=== PATIENT | female | born 1965 | race Caucasian/White ===

== ENCOUNTER 2022-05-22 08:49 | Emergency (ER) | payer OTHER ==
[~2022-05-22] VITALS: Ht 162.6 cm; Wt 66.9 kg
[~2022-05-22 08:49] MED LIST: DICLOFENAC SODI75 MG PO; ESTRACE1 MG PO; HYDROMORPHONE HC4 MG PO; LEVOTHYROXINE50 MCG PO; LOSARTAN POTASS25 MG PO; PAMELOR10 MG PO; PRILOSEC10 MG PO; VOLTAREN100 GM TOP
[2022-05-22] MEDS ORDERED: KETOROLAC TROME10 MG PO (09:35)
[2022-05-22] MEDS ORDERED: TRAMADOL HCL50 MG PO (09:35)
[2022-05-22] MEDS ORDERED: MAXALT10 MG PO (09:36)
[2022-05-22] MEDS ORDERED: PREDNISONE20 MG PO (13:52)
--- NOTE | 2022-05-25 16:10 | EKG ---
[facility] [address] [facility] [place] [address] Signed Normal sinus rhythm Normal ECG When compared with ECG of 28-APR-2020 14:54, No significant change was found Confirmed by STACY FITCH MD ([id number]) on 05/25/2022 4:10:13 PM Electronically Signed By: STACY FITCH MD 05/25/22 1610 PATIENT NAME: EMMA VACA Electrocardiogram DATE OF : 61 PHYSICIAN: STACY FITCH MD REPORT #: [id number] REPORT IS CONFIDENTIAL AND NOT TO BE RELEASED WITHOUT AUTHORIZATION
== END 2022-05-22 14:49 | disposition home or self-care (01) ==
LOC: ED 08:49
DX: G44.209 Tension-type headache, unspecified, not intractable (principal); M54.12 Radiculopathy, cervical region; Z88.5 Allergy status to narcotic agent; Z88.8 Allergy status to other drugs, medicaments and biological substances; Z79.899 Other long term (current) drug therapy
CPT/HCPCS: 36415; 70450; 70496; 70498; 70551; 71045; 72141; 80053; 84484; 85025; 85610; 85730; 93005; 93010; 96374; 99284-25; J1100

== ENCOUNTER 2024-08-18 09:16 | Day surgery (SDC) | payer OTHER ==
[~2024-08-18] VITALS: Ht 162.6 cm; Wt 63.5 kg
[~2024-08-18 09:16] MED LIST changes: +ALDACTONE25 MG PO; +BUDESONIDE EC3 M1 PO; +CARAFATE1 GM PO; +CLARITIN10 MG PO; +COZAAR25 MG PO; +ESTRADIOL0.5 MG PO; +IBLOOD GLUCOSE TEST STRIP 1 EA TEST VI PRN; +KETOROLAC TROME10 MG PO; +LACTATED RINGER'S 1,000 ML IV SCH; +LIDOCAINE HCL 1% 5 ML SDV INJ ONE; +LOMOTIL TABLET1 EACH PO; +MAXALT10 MG PO; +MIDAZOLAM HCL 5 MG/5 ML VIAL IV PRN; +NEURONTIN300 MG PO; +NORTRIPTYLINE H10 MG PO; +PREDNISONE20 MG PO; +TRAMADOL HCL50 MG PO; +ZYRTEC10 MG PO; +fentaNYL citrate 100 MCG/2 ML VIAL IV PRN
[2024-08-18 09:41] VITALS: BP 140/78
[2024-08-18] MEDS ORDERED: fentaNYL citrate 100 MCG/2 ML VIAL ONE (09:52)
[2024-08-18] MEDS ORDERED: MIDAZOLAM HCL 5 MG/5 ML VIAL ONE (09:52)
--- NOTE | 2024-08-18 10:50 | NUR ---
08/18/24 1050 Natalia Hall 1045-PATIENT ARRIVED TO PACU ON 3L NC RR EVEN PATIENT AWAKE VERY DROWY DENIES PAIN OR NAUSEA. LAYING LEFT LATERAL ABDOMEN SOFT. ORIENTED TO PACU. LAYING LEFT LATERAL. IVF INFUSING. SR HR 60'S.
[2024-08-18 11:50] VITALS: BP 130/87
--- NOTE | 2024-08-19 13:13 | OR ---
[facility] [address] [place], [place] [address] Signed DATE OF OPERATION: 08/18/2024 SURGEON: Aneudy Lanier MD PREOPERATIVE DIAGNOSES: 1. Intractable nonbloody diarrhea, extensive evaluation, normal. 2. Elevated fecal calprotectin. POSTOPERATIVE DIAGNOSES: 1. Two small polyps of rectum (excised). 2. Mild edema of colon, consideration for microscopic colitis. PROCEDURES: 1. Total colonoscopy to cecum with biopsies. 2. Cold morcellation polypectomy x2. ANESTHESIA: Intravenous sedation fentanyl 100 mcg and Versed 5 mg. INDICATION: This 59-year-old white woman is a patient Dr. Emerald Anne. She has had intractable persistent nonbloody diarrhea for quite some time. Extensive evaluation undertaken by Dr. Anne and others has shown no evidence of celiac disease or enteric pathogens. A fecal calprotectin was noted to be markedly elevated and she did have white cells in the stool. On that basis, colonoscopy is indicated to better characterize the problem. She understands the risk of bleeding, infection, and perforation related to colonoscopy and wished to proceed. Of special note, she has also undergone cholecystectomy in the past. Celiac disease evaluation has been negative. FINDINGS: The prep was quite excellent. Complete colonoscopy was undertaken of the cecum with full intubation of the cecum. The colon itself had no overt evidence of colitis. There was mild edema and haziness of blood vessels and she may indeed have lymphocytic colitis or other colitis that is in apparent on endoscopic impression. DESCRIPTION OF PROCEDURE: The patient was brought to the endoscopy suite, and placed in lateral decubitus position, given intravenous sedation to the point of slurred speech and nystagmus. Digital rectal examination was normal. Full cardiopulmonary monitoring was maintained. Electronically Signed By: ANEUDY LANIER MD 08/19/24 1313 PATIENT NAME: EMMA VACA OPERATIVE REPORT DATE OF : 61 REPORT #: [id number] PHYSICIAN: ANEUDY LANIER MD PCP: EMERALD ANNE MD REPORT IS CONFIDENTIAL AND NOT TO BE RELEASED WITHOUT AUTHORIZATION [facility] [address] [place], [place] [address] Signed An Olympus video colonoscope was passed in the rectum and manipulated throughout the colon, ultimately intubating the cecum itself. The appendiceal orifice appeared normal as did the cecal mucosa generally. Biopsies were obtained. The scope was withdrawn and the fine granular appearance of the mucosa with mild edema with haziness of the blood vessels was seen though not strictly florid colitis per se. Throughout the colon similar findings were noted. Biopsies were taken throughout. Two small polyps were noted in the rectosigmoid area, both excised with cold morcellation technique. Biopsies were additionally taken to rectum itself. The scope was removed. The patient was taken to the recovery room in good condition. CONCLUDING DIAGNOSIS: This may represent microscopic colitis (this would include collagenous colitis, etc.) Biopsies will be important to fully evaluate for definitive diagnosis. PLAN: For now we will initiate Questran 4 g p.o. q.i.d., anticipating followup within the next few weeks. Depending on pathologic findings, we will modify the treatment plan, possibly to include budesonide if collagenous colitis is noted or even empiric treatment with Flagyl with no evidence of colitis. Aneudy Lanier MD JM/MODL /[id number] cc: Emerald Anne MD Copies: EMERALD ANNE MD ~ Electronically Signed By: ANEUDY LANIER MD 08/19/24 1313 PATIENT NAME: EMMA VACA OPERATIVE REPORT DATE OF : 61 REPORT #: [id number] PHYSICIAN: ANEUDY LANIER MD PCP: EMERALD ANNE MD REPORT IS CONFIDENTIAL AND NOT TO BE RELEASED WITHOUT AUTHORIZATION
--- NOTE | 2024-08-21 09:50 | PATH ---
[facility] [address] [facility] [place], [place] [address] Signed SPECIMEN(S): A CECUM COLON BIOPSY SPECIMEN(S): B ASCENDING COLON BIOPSY SPECIMEN(S): C TRANSVERSE COLON BIOPSY SPECIMEN(S): D DESCENDING COLON BIOPSY SPECIMEN(S): E RECTOSIGMOID BIOPSY SPECIMEN(S): F RECTAL POLYPS SPECIMEN(S): G RECTUM SPECIMEN SOURCE: A. CECUM COLON BIOPSY B. ASCENDING COLON BIOPSY C. TRANSVERSE COLON BIOPSY D. DESCENDING COLON BIOPSY E. RECTOSIGMOID BIOPSY F. RECTAL POLYPS G. RECTUM CLINICAL HISTORY: Acute diarrhea, GERD, nonulcer dyspepsia, elevated fecal calprotectin, rectal polyps and low-grade inflammation FINAL PATHOLOGIC DIAGNOSIS: A. Cecum, biopsies - Histologic changes consistent with collagenous colitis. B. Ascending colon, biopsies - Histologic changes consistent with collagenous colitis. C. Transverse colon, biopsies - Histologic changes consistent with collagenous colitis. D. Descending colon, biopsies - Histologic changes consistent with collagenous colitis. E. Rectosigmoid colon, biopsies - Histologic changes consistent with collagenous colitis. See comment. F. Rectal polyps - Hyperplastic polyps. G. Rectum, biopsies - Mildly hyperplastic colonic mucosa, negative for colitis, granulomas or dysplasia. COMMENT: Trichrome stain is performed on blocks A1, B1, D1 and E1, highlighting variable thickening of subepithelial collagen. Patchy increased intraepithelial PATIENT NAME: EMMA VACA PATHOLOGY DATE OF : 61 REPORT #: [id number] PHYSICIAN: MICHELE WEBER PCP: EMERALD BASURTO MD REPORT IS CONFIDENTIAL AND NOT TO BE RELEASED WITHOUT AUTHORIZATION [facility] [address] [place], [place] [address] Signed lymphocytes are present throughout the biopsies. In the appropriate clinical setting, these changes are consistent with collagenous colitis. The patient's history of diarrhea is noted. AMB MICROSCOPIC EXAMINATION: Histologic sections of all submitted blocks are examined by light microscopy. These findings, together with the gross examination, support the pathologic diagnosis. GROSS DESCRIPTION: A. The specimen, labeled and designated "David, cecum colon biopsy," is received in formalin and consists of two deutsch soft tissue fragments, ranging from 0.5-0.6 cm. Entirely submitted in (A1). B. The specimen, labeled and designated "David, ascending colon biopsy," is received in formalin and consists of three deutsch soft tissue fragments, ranging from 0.1-0.7 cm. Entirely submitted in (B1). C. The specimen, labeled and designated "David, transverse colon biopsy," is received in formalin and consists of two deutsch soft tissue fragments, ranging from 0.2-0.3 cm. Entirely submitted in (C1). D. The specimen, labeled and designated "David, descending colon biopsy," is received in formalin and consists of two deutsch soft tissue fragments, ranging from 0.4-0.5 cm. Entirely submitted in (D1). E. The specimen, labeled and designated "David, rectosigmoid biopsy," is received in formalin and consists of three deutsch soft tissue fragments, ranging from 0.1-0.5 cm. Entirely submitted in (E1). F. The specimen, labeled and designated "David, rectal polyps," is received in formalin and consists of two deutsch soft tissue fragments, ranging from 0.3-0.4 cm. Entirely submitted in (F1). G. The specimen, labeled and designated "David rectum biopsy," is received in formalin and consists of two deutsch soft tissue fragments, ranging from 0.2-0.3 cm. Entirely submitted in (G1). VB (under the direct supervision of a pathologist) The Gross Description was prepared using a voice recognition system. The report was reviewed for accuracy; however, sound-alike word errors, addition and/or deletions may occur. If there is any question about this report, please contact Client Services. ADDITIONAL NOTES: Immunohistochemical and/or in situ hybridization studies if performed in this case included appropriate positive controls that reacted as expected. This PATIENT NAME: EMMA VACA PATHOLOGY DATE OF : 61 REPORT #: [id number] PHYSICIAN: MICHELE WEBER PCP: EMERALD BASURTO MD REPORT IS CONFIDENTIAL AND NOT TO BE RELEASED WITHOUT AUTHORIZATION [address] [address] Signed test was developed and its performance characteristics determined by [facility]. It has not been cleared or approved by the U.S. Food and Drug Administration. The FDA has determined that such clearance or approval is not necessary. This test is used for clinical purposes. It should not be regarded as investigational or for research. [facility] is certified under the Clinical Laboratory Improvement Amendments of 1988 (CLIA) as qualified to perform high complexity clinical laboratory testing. PERFORMING LABORATORY: Technical component was performed by [facility], [address] [place] [address] (CLIA# [id number]). Professional interpretation was performed by [facility] [address] [place] [id number] Diagnostician: Mague White MD Pathologist Electronically Signed 08/21/2024 Copies: ~ PATIENT NAME: EMMA VACA PATHOLOGY DATE OF : 61 REPORT #: [id number] PHYSICIAN: MICHELE PATHOLOGY PCP: EMERALD BASURTO MD REPORT IS CONFIDENTIAL AND NOT TO BE RELEASED WITHOUT AUTHORIZATION
== END 2024-08-18 11:55 | disposition home or self-care (01) ==
LOC: DS 09:16
PROVIDERS: ATTEND Surgery
PROC: 0DBL8ZZ Excision of Transverse Colon, Via Natural or Artificial Opening Endoscopic (ICD-10-PCS; 2024-08-18)
PROC: 0DBN8ZZ Excision of Sigmoid Colon, Via Natural or Artificial Opening Endoscopic (ICD-10-PCS; 2024-08-18)
PROC: 0DBP8ZZ Excision of Rectum, Via Natural or Artificial Opening Endoscopic (ICD-10-PCS; 2024-08-18)
PROC: 0DBF8ZZ Excision of Right Large Intestine, Via Natural or Artificial Opening Endoscopic (ICD-10-PCS; 2024-08-18)
PROC: 0DBH8ZZ Excision of Cecum, Via Natural or Artificial Opening Endoscopic (ICD-10-PCS; principal; 2024-08-18 11:00)
DX: K62.1 Rectal polyp (principal); K63.5 Polyp of colon; R19.7 Diarrhea, unspecified; K21.9 Gastro-esophageal reflux disease without esophagitis; R19.5 Other fecal abnormalities; Z78.0 Asymptomatic menopausal state; Z90.49 Acquired absence of other specified parts of digestive tract; Z88.5 Allergy status to narcotic agent; Z79.899 Other long term (current) drug therapy
CPT/HCPCS: 99153; G0500; J2250; J3010; J7121